=== PATIENT | male | born 1960 | race Caucasian/White ===

== ENCOUNTER → 2016-09-30 11:26 | Emergency (ER) | payer SELFPAY ==
[~2016-09-30 11:26] MED LIST: Ibuprofen TAB* 600 MG PO ONE
[2016-09-30 11:30] VITALS: BP 129/79
--- NOTE | 2016-09-30 14:27 | RAD ---
Indication: RIGHT knee pain and edema. Swelling and laceration superior lateral to the patella. Comparison: None. Technique: RIGHT knee: AP, tunnel, crosstable lateral, and sunrise views. Report: Moderate anterior soft tissue swelling. No subcutaneous emphysema or conspicuous foreign body. Suggestion of minimal suprapatellar joint effusion. Negative for fracture or malalignment. Mild osteophytosis. Negative for significant joint space narrowing. IMPRESSION: Anterior soft tissue swelling and suggestion of small suprapatellar joint effusion. Kellgren and Vasiliy grade 1 osteoarthritis.
--- NOTE | 2016-09-30 15:11 | ED ---
Lower Extremity - History of Current Complaint Chief Complaint: EDExtremityLower Stated Complaint: HIT BY A TREE Time Seen by Provider: 09/30/16 13:18 Pain Intensity: 6 - Allergies/Home Medications Allergies/Adverse Reactions: Allergies Allergy/AdvReac Type Severity Reaction Status Date / Time No Known Allergies Allergy Verified 09/30/16 11:27 PMH/Surg Hx/FS Hx/Imm Hx Infectious Disease History: No Infectious Disease History: Denies: Traveled Outside the [place] in Last 30 Days - Social History Alcohol Use: Daily Substance Use Type: Reports: None Smoking Status (MU): Never Smoked Tobacco Physical Exam Vital Signs On Initial Exam: Initial Vitals Temp Pulse Resp BP Pulse Ox 98.4 F 94 16 129/79 98 09/30/16 11:28 09/30/16 11:28 09/30/16 11:28 09/30/16 11:28 09/30/16 11:28 - Guero Coma Scale Coma Scale Total: 15 Diagnostics - Vital Signs Vital Signs Temp Pulse Resp BP Pulse Ox 09/30/16 11:28 98.4 F 94 16 129/79 98 - Laboratory Lab Statement: Any lab studies that have been ordered have been reviewed, and results considered in the medical decision making process. - Radiology knee right Xray Interpretation: Positive (See Comments) - Anterior soft tissue swelling and suggestion of small suprapatellar joint effusion. Kellgren and Vasiliy grade 1 osteoarthritis. Radiology Interpretation Completed By: Radiologist Lower Extremity Course/Dx - Diagnoses Differential Diagnosis/HQI/PQRI: Positive: Contusion, Dislocation, Fracture ( Closed), Sprain, Strain, Other Provider Diagnoses: Right knee injury, Joint effusion, knee Discharge - Discharge Plan Condition: Stable Disposition: HOME Patient Education Materials: Knee Immobilizer (ED), Swollen Knee Joint (ED) Additional Instructions: Use immobilizer and crutches until seen by orthopedics or primary care provider. Take prescribed pain medication to help with swelling and pain. Ice your knee 20 minutes on and off, and rest. Elevate your knee to help with swelling. Follow up with orthopedics for further imaging and evaluation. If symptoms worsen or new symptoms develop please return.
== END | disposition home or self-care (01) ==
LOC: ED 11:26
DX: S89.91XA Unspecified injury of right lower leg, initial encounter (principal); M25.469 Effusion, unspecified knee; W22.8XXA Striking against or struck by other objects, initial encounter; Y93.9 Activity, unspecified; Y92.9 Unspecified place or not applicable; Y99.9 Unspecified external cause status
CPT/HCPCS: 99282; A9270-GY